=== PATIENT | female | born 2000 | race Hispanic/Latino ===

== ENCOUNTER 2018-10-30 00:12 | Emergency (ER) | payer OTHER ==
[2018-10-30] MEDS ORDERED: DEXAMETHASONE SOD PHOSPHATE 10MG/ML 1ML VIAL ONE (00:53)
[2018-10-30] MEDS ORDERED: CEFTRIAXONE SODIUM 1 GM ONE (00:54)
[2018-10-30] MEDS ORDERED: LIDOCAINE HCL-MPF 1% 2ML VIAL ONE (00:54)
[2018-10-30 01:05] LABS: RAPID GROUP A STREP NEGATIVE (NEGATIVE)
[2018-10-30] MEDS ORDERED: OSELTAMIVIR PHOSPHATE 75 MG CAP ONE (01:27)
== END 2018-10-30 02:26 | disposition home or self-care (01) ==
LOC: EDH 00:12
DX: J10.1 Influenza due to other identified influenza virus with other respiratory manifestations (principal)
CPT/HCPCS: 71046; 81025; 87804 ×2; 87880; 96372 ×2; 99285; J0696; J1100; J3490